=== PATIENT | female | born 1965 | race Asian ===

== ENCOUNTER 2022-06-14 14:23 | Emergency (ER) | payer MEDICAID, OTHER ==
[~2022-06-14] VITALS: Ht 152.4 cm; Wt 81.9 kg
[2022-06-14 16:07] LABS: Urine Bacteria NONE SEEN /hpf (None Seen); Urine Blood 1+ /uL (Negative); Urine Mucus MODERATE (None Seen); Urine Specific Gravity 1.027 (1.001-1.035); Urine WBC 148 /hpf (0 - 5)
[2022-06-14] MEDS ORDERED: IBUP800T27 PO (16:37)
[2022-06-14] MEDS ORDERED: BACDST PO (16:37)
[2022-06-14] MEDS ORDERED: CEPH500C PO (16:37)
[2022-06-14] MEDS ORDERED: cefTRIAXone SOD 1,000 MG VL IM ONE (16:45)
[2022-06-14 16:55] VITALS: BP 124/65
== END 2022-06-14 17:02 | disposition home or self-care (01) ==
LOC: ER 14:23
DX: S80.261A Insect bite (nonvenomous), right knee, initial encounter (principal); N39.0 Urinary tract infection, site not specified; E78.5 Hyperlipidemia, unspecified; Z79.1 Long term (current) use of non-steroidal anti-inflammatories (NSAID); Z79.899 Other long term (current) drug therapy; W57.XXXA Bitten or stung by nonvenomous insect and other nonvenomous arthropods, initial encounter; Y93.89 Activity, other specified; Y92.89 Other specified places as the place of occurrence of the external cause; Y99.8 Other external cause status
CPT/HCPCS: 81001; 96372; 99283; J0696